=== PATIENT | male | born 2005 | race Caucasian/White ===

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

== ENCOUNTER 2024-05-05 11:31 | Emergency (ER) | payer OTHER ==
[2024-05-05 12:03] VITALS: RESP 18; TEMP 97.1; BMI 22.8
[2024-05-05] MEDS ORDERED: ONDANSETRON 4 MG/2 ML VIAL ONE (12:46)
[2024-05-05] MEDS ORDERED: ACETAMINOPHEN INJECTION 100 ML ONE (12:46)
[2024-05-05] MEDS: LACTATED RINGERS SOLUTION 1000 ML INFUS.BAG IV ONE (12:59)
[2024-05-05] MEDS: ONDANSETRON 4 MG/2 ML VIAL IVPUSH ONE (13:00)
[2024-05-05] MEDS: ACETAMINOPHEN 1000 MG/100 ML BAG IVPB ONE (13:00)
[2024-05-05 13:03] LABS: BASO % 0.4 % (0-2.0); EOS % 1.5 % (0-4.5); HEMATOCRIT 44.3 % (35.4-49); HEMOGLOBIN 15.3 GM/dL (11.7-16.9); LYMPH % 29.4 % (8-40); MCH 31.7 pg (25.7-33.7); MCHC 34.6 g/dl (32.0-35.9); MEAN CELL VOLUME 91.5 fl (80-96); MEAN PLT VOLUME 8.9 fl (7.5-11.1); MONO % 8.8 % (3.8-10.2); NEUT % 59.9 % (42.8-82.8); PLATELET COUNT 208 10^3/uL (134-434); RBC 4.84 M/mm3 (4.00-5.60); RDW 12.5 % (11.9-15.9); WHITE BLOOD COUNT 7.7 K/mm3 (4.0-10.0)
[2024-05-05] MEDS: ONDANSETRON 4 MG TABLET PO ONE (13:03)
[2024-05-05] MEDS: ACETAMINOPHEN 500 MG TABLET (FP) PO ONE (13:03)
[2024-05-05 13:40] LABS: POTASSIUM 3.9 mmol/L (3.5-5.1)
[2024-05-05 13:42] LABS: BLOOD UREA NITROGEN 13.1 mg/dL (7-18); CALCIUM 9.2 mg/dL (8.5-10.1)
[2024-05-05 13:43] LABS: ALBUMIN 4.2 g/dl (3.4-5.0); MAGNESIUM 2.1 mg/dL (1.8-2.4)
[2024-05-05 13:46] LABS: CREATININE 0.9 mg/dL (0.55-1.3)
[2024-05-05 13:47] LABS: BILIRUBIN,TOTAL 0.7 mg/dL (0.2-1); TOT PROT 7.5 g/dl (6.4-8.2)
[2024-05-05 16:48] VITALS: BP 123/70; PULSE 69
== END 2024-05-05 16:20 | disposition home or self-care (01) ==
LOC: JER 11:31
PROC: 3E033NZ Introduction of Analgesics, Hypnotics, Sedatives into Peripheral Vein, Percutaneous Approach (ICD-10-PCS; principal; 2024-05-05)
PROC: 3E033GC Introduction of Other Therapeutic Substance into Peripheral Vein, Percutaneous Approach (ICD-10-PCS; 2024-05-05)
DX: R10.30 Lower abdominal pain, unspecified (principal); K52.9 Noninfective gastroenteritis and colitis, unspecified; R63.0 Anorexia
CPT/HCPCS: 36415; 80053; 83735; 85025; 99284-25; J0131